=== PATIENT | female | born 1995 | race American Indian/Alaskan Native ===

== ENCOUNTER 2018-10-02 23:53 | Emergency (ER) | payer SELFPAY ==
[2018-10-03 00:11] VITALS: BP 126/80
--- NOTE | 2018-10-03 03:15 | Emergency Department Report ---
ED Animal Bite HPI - General Chief Complaint: Animal Bite Stated Complaint: DOG BITE Source: patient Mode of arrival: Ambulatory Limitations: No Limitations - History of Present Illness Initial Comments: This is a 23-year-old after [place] female who presents with a dog bite right buttocks. Patient states she was visiting a friend and their dog latched onto her right buttocks. She states they flushed area with water and used alcohol wipes and came in for further evaluation. She reports moderate bleeding and tender to site. Patient's [place] is in state's dog is up-to-date which shot record. Patient reports pain is 7 out of 10 on pain scale while sitting. MD Complaint: animal bite Onset/Timin -: hour(s) Location: buttocks (right buttocks) Animal: dog Animal Control Notified: No Description: household pet, immunizations UTD Mechanism: bite Pain Description: sharp Severity scale (0 -10): 7 Context: unprovoked Associated Symptoms: bleeding. denies: erythema, discharge from wound, fever, chills, rash, loss of consciousness, diaphoresis, shortness of breath Treatments Prior to Arrival: irrigation - Related Data Patient Tetanus UTD: No Previous Rx's Medication Instructions Recorded Last Taken Type Amoxicillin/Potassium Clav 1 each PO BID #14 tablet 10/03/18 Unknown Rx [Augmentin 500-125 Tablet] Allergies Allergy/AdvReac Type Severity Reaction Status Date / Time No Known Allergies Allergy Unverified 10/03/18 00:22 ED Review of Systems ROS: Stated complaint: DOG BITE Other details as noted in HPI Constitutional: denies: chills, fever Respiratory: denies: cough, shortness of breath, wheezing Cardiovascular: denies: chest pain, palpitations Gastrointestinal: denies: abdominal pain, nausea, diarrhea Skin: lesions (dog bite to right buttocks). denies: rash Neurological: denies: headache, weakness, paresthesias Psychiatric: denies: anxiety, depression ED Past Medical Hx - Past Medical History Previous Medical History?: No - Surgical History Past Surgical History?: No - Social History Smoking Status: Never Smoker Substance Use Type: None - Medications Home Medications: Home Medications Medication Instructions Recorded Confirmed Last Taken Type Amoxicillin/Potassium Clav 1 each PO BID #14 tablet 10/03/18 Unknown Rx [Augmentin 500-125 Tablet] ED Physical Exam - General Limitations: No Limitations General appearance: alert, in no apparent distress - Respiratory Respiratory exam: Present: normal lung sounds bilaterally. Absent: respiratory distress - Cardiovascular Cardiovascular Exam: Present: regular rate, normal rhythm. Absent: systolic murmur, diastolic murmur, rubs, gallop - GI/Abdominal GI/Abdominal exam: Present: soft, normal bowel sounds - Neurological Exam Neurological exam: Present: alert, oriented X3 - Psychiatric Psychiatric exam: Present: normal affect, normal mood - Skin Skin exam: Present: warm, dry, normal color, other (1 cm puncture site to right proximal buttock, tenderness, mild serosanguineous discharge, no surrounding cellulitis). Absent: intact, rash ED Course Vital Signs 10/02/18 23:57 Temperature 98.3 F Pulse Rate 86 Respiratory 16 Rate Blood Pressure 126/80 O2 Sat by Pulse 100 Oximetry Critical care attestation.: If time is entered above; I have spent that time in minutes in the direct care of this critically ill patient, excluding procedure time. ED Disposition Clinical Impression: Dog bite of buttock Qualifiers: Encounter type: initial encounter Laterality: right Qualified Code(s): S31.815A - Open bite of right buttock, initial encounter Disposition: DC-01 TO HOME OR SELFCARE Is pt being admited?: No Does the pt Need Aspirin: No Condition: Stable Instructions: Animal Bite (ED) Additional Instructions: Complete full course of antibiotics as prescribed. Continue to flush wound with soap and water daily. Follow up with your primary care provider. Return to emergency room if purulent discharge, redness around wound, fever, or warmth to area. Prescriptions: Amoxicillin/Potassium Clav [Augmentin 500-125 Tablet] 1 each PO BID #14 tablet Referrals: [facility] [Outside] - 3-5 Days [facility] [Outside] - 3-5 Days [facility] [Outside] - 3-5 Days Forms: Accompanied Note, Work/School Release Form(ED) Time of Disposition: 03:20 ED Medical Decision Making - Medical Decision Making This is a 23-year-old female that presents with dog bite to the right buttocks 3 hours ago. Patient is stable and was examined by me. 1 cm puncture site to the right proximal buttocks. Wound irrigated with normal saline. Patient is unsure of last tetanus vaccine. Given tetanus vaccine while in the ER. This is a known dog, shot records are up-to-date. Consulted on rabies vaccine and the patient decided not to receive. Start Augmentin 500/125 mg by mouth twice a day 7 days with 0 refills. Discussed plan with patient. She agreed with ER plan. Discharged home stable. Follow up with a primary care provider in 24-48 hours for reevaluation.
[2018-10-03] MEDS ORDERED: BOOSTRIX IM ONE (03:25)
[2018-10-03] MEDS ORDERED: NACL 0.9% 0 ML IR ONE (03:48)
== END 2018-10-03 04:15 | disposition home or self-care (01) ==
LOC: ED 23:53
DX: S31.815A Open bite of right buttock, initial encounter (principal); W54.0XXA Bitten by dog, initial encounter; Y93.89 Activity, other specified; Y92.89 Other specified places as the place of occurrence of the external cause; Y99.8 Other external cause status
CPT/HCPCS: 90471; 90715; 99282